=== PATIENT | female | born 1980 | race Two or more races ===

== ENCOUNTER 2022-05-19 09:07 | Day surgery (SDC) | payer OTHER ==
[~2022-05-19 09:07] MED LIST: D3 + K2 DOTS 11 EACH PO; SYNTHROID75 MCG PO
[2022-05-19] MEDS ORDERED: ZITHROMAX500 MG PO (15:18)
== END 2022-05-19 17:15 | disposition home or self-care (01) ==
LOC: CIR.AMB 09:07
PROVIDERS: ATTEND Obstetrics & Gynecology
DX: N84.0 Polyp of corpus uteri (principal); N72 Inflammatory disease of cervix uteri; Z88.6 Allergy status to analgesic agent; E03.9 Hypothyroidism, unspecified